=== PATIENT | male | born 1950 | race Caucasian/White ===

== ENCOUNTER 2017-01-13 10:30 | Day surgery (SDC) | payer OTHER ==
[~2017-01-13] VITALS: Ht 182.9 cm; Wt 103.4 kg
[~2017-01-13 10:30] MED LIST: ANTIVERT25 MG PO; PERCOCET 5/31 TABLET PO; TYLENOL EXTRA500 MG PO
[2017-01-13 11:06] VITALS: BP 139/95
[2017-01-13 13:25] VITALS: BP 129/84
[2017-01-13 14:11] VITALS: BP 152/74
== END 2017-01-13 14:20 | disposition home or self-care (01) ==
LOC: SDC 10:30
DX: C66.1 Malignant neoplasm of right ureter (principal); N13.30 Unspecified hydronephrosis; Z96.653 Presence of artificial knee joint, bilateral
CPT/HCPCS: 74420; 88305; C1876; J0330; J0690; J1100; J2250; J2405; J3010

== ENCOUNTER → 2017-02-08 | Outpatient (CLI) | payer MEDICARE ==
[~2017-02-08] MED LIST changes: +DOCUSATE SODIU100 MG PO; +TAMSULOSIN HCL0.4 MG PO
== END | disposition home or self-care (01) ==
LOC: CDC 09:19
DX: D49.59 Neoplasm of unspecified behavior of other genitourinary organ (principal)
CPT/HCPCS: 93000

== ENCOUNTER 2017-02-12 07:22 | Inpatient (IN) | payer OTHER ==
[~2017-02-12] VITALS: Ht 182.9 cm; Wt 102.0 kg
[~2017-02-12 07:22] MED LIST changes: -DOCUSATE SODIU100 MG PO; -TAMSULOSIN HCL0.4 MG PO
[2017-02-12 08:06] VITALS: BP 135/85
[2017-02-12] MEDS ORDERED: TAMSULOSIN HCL0.4 MG PO (14:25)
[2017-02-12] MEDS ORDERED: PERCOCET 5/31 TABLET PO (14:25)
[2017-02-12] MEDS ORDERED: DOCUSATE SODIU100 MG PO (14:25)
[2017-02-12 16:15] LABS: HEMATOCRIT 46.5 % (38.0-50.0); MCH 29.8 PG (29.0-34.0); MCHC 32.7 G/DL (30.0-36.0); MCV 91.2 FL (86-99); MEAN PLAT.VOLUME 9.5 uM^3 (9.0-12.4); PLATELET COUNT 242 K/uL (156-360); RBC DIS.WIDTH-CV 12.2 % (11.8-14.6); RBC DIS.WIDTH-SD 40.7 % (39-53)
[2017-02-12 16:22] LABS: WHITE BLOOD COUNT 13.3 K/uL (4.1-10.2)
[2017-02-12 16:39] LABS: ANION GAP 12 MEQ/L (2-14); CHLORIDE 104 MEQ/L (99-109); GFR ESTIMATE (CALCULATED) 46 mL/min/; GLUCOSE 147 mg/dL (70-99); POTASSIUM 3.7 MEQ/L (3.7-5.4); SAMPLE HEMOLYSIS CHECK 0; SAMPLE ICTERIC CHECK 0; SAMPLE LIPEMIA CHECK 0; SODIUM 139 MEQ/L (136-147); UREA NITROGEN (BUN) 12 mg/dL (9-23)
[2017-02-12 19:16] VITALS: BP 123/82
[2017-02-12 23:14] VITALS: BP 121/82
[2017-02-13 07:03] VITALS: BP 137/73
[2017-02-13 08:12] LABS: HEMATOCRIT 44.1 % (38.0-50.0); MCH 29.9 PG (29.0-34.0); MCHC 32.4 G/DL (30.0-36.0); MCV 92.1 FL (86-99); MEAN PLAT.VOLUME 9.5 uM^3 (9.0-12.4); PLATELET COUNT 249 K/uL (156-360); RBC DIS.WIDTH-CV 12.5 % (11.8-14.6); RBC DIS.WIDTH-SD 42.3 % (39-53); RED BLOOD COUNT 4.79 M/uL (4.00-5.50); WHITE BLOOD COUNT 9.9 K/uL (4.1-10.2)
[2017-02-13 08:34] LABS: ANION GAP 8 MEQ/L (2-14); CHLORIDE 102 MEQ/L (99-109); GFR ESTIMATE (CALCULATED) 46 mL/min/; SAMPLE HEMOLYSIS CHECK 0; SAMPLE ICTERIC CHECK 0; SAMPLE LIPEMIA CHECK 0; SODIUM 137 MEQ/L (136-147); UREA NITROGEN (BUN) 17 mg/dL (9-23)
[2017-02-13 08:49] LABS: GLUCOSE 98 mg/dL (70-99); POTASSIUM 4.6 MEQ/L (3.7-5.4)
[2017-02-13 11:36] VITALS: BP 142/82
[2017-02-13 15:28] VITALS: BP 154/83
[2017-02-13 18:54] VITALS: BP 124/75
[2017-02-13 23:08] VITALS: BP 162/87
[2017-02-14 04:00] VITALS: BP 132/85
[2017-02-14 06:16] LABS: HEMATOCRIT 44.1 % (38.0-50.0); MCH 29.7 PG (29.0-34.0); MCHC 32.9 G/DL (30.0-36.0); MCV 90.4 FL (86-99); MEAN PLAT.VOLUME 9.4 uM^3 (9.0-12.4); PLATELET COUNT 201 K/uL (156-360); RBC DIS.WIDTH-CV 12.2 % (11.8-14.6); RBC DIS.WIDTH-SD 40.2 % (39-53); RED BLOOD COUNT 4.88 M/uL (4.00-5.50); WHITE BLOOD COUNT 9.9 K/uL (4.1-10.2)
[2017-02-14 06:41] LABS: ANION GAP 10 MEQ/L (2-14); CHLORIDE 98 MEQ/L (99-109); GFR ESTIMATE (CALCULATED) 54 mL/min/; GLUCOSE 78 mg/dL (70-99); POTASSIUM 4.1 MEQ/L (3.7-5.4); SAMPLE HEMOLYSIS CHECK 0; SAMPLE ICTERIC CHECK 0; SAMPLE LIPEMIA CHECK 0; SODIUM 132 MEQ/L (136-147); UREA NITROGEN (BUN) 18 mg/dL (9-23)
[2017-02-14 08:39] VITALS: BP 134/87
[2017-02-14 15:45] VITALS: BP 153/95
[2017-02-14 19:24] VITALS: BP 157/88
[2017-02-14 23:23] VITALS: BP 136/86
[2017-02-15 05:34] VITALS: BP 151/90
[2017-02-15 07:10] VITALS: BP 141/81
[2017-02-15 07:12] LABS: HEMATOCRIT 42.3 % (38.0-50.0); MCHC 33.6 G/DL (30.0-36.0); MCV 89.2 FL (86-99); MEAN PLAT.VOLUME 9.7 uM^3 (9.0-12.4); PLATELET COUNT 200 K/uL (156-360); RBC DIS.WIDTH-CV 11.9 % (11.8-14.6); RBC DIS.WIDTH-SD 38.7 % (39-53); RED BLOOD COUNT 4.74 M/uL (4.00-5.50); WHITE BLOOD COUNT 9.5 K/uL (4.1-10.2)
[2017-02-15 07:35] LABS: ANION GAP 12 MEQ/L (2-14); CHLORIDE 98 MEQ/L (99-109); GFR ESTIMATE (CALCULATED) > 59 mL/min/; GLUCOSE 80 mg/dL (70-99); POTASSIUM 4.1 MEQ/L (3.7-5.4); SAMPLE HEMOLYSIS CHECK 0; SAMPLE ICTERIC CHECK 0; SAMPLE LIPEMIA CHECK 0; SODIUM 132 MEQ/L (136-147); UREA NITROGEN (BUN) 18 mg/dL (9-23)
[2017-02-15 11:00] VITALS: BP 137/83
[2017-02-15 15:00] VITALS: BP 139/79
[2017-02-15 22:40] VITALS: BP 118/78
[2017-02-16 06:55] VITALS: BP 123/81
[2017-02-16 06:58] LABS: HEMATOCRIT 41.8 % (38.0-50.0); MCH 29.6 PG (29.0-34.0); MCHC 33.5 G/DL (30.0-36.0); MCV 88.4 FL (86-99); MEAN PLAT.VOLUME 9.7 uM^3 (9.0-12.4); PLATELET COUNT 231 K/uL (156-360); RBC DIS.WIDTH-CV 11.9 % (11.8-14.6); RBC DIS.WIDTH-SD 38.7 % (39-53); RED BLOOD COUNT 4.73 M/uL (4.00-5.50); WHITE BLOOD COUNT 8.6 K/uL (4.1-10.2)
[2017-02-16 07:21] LABS: ANION GAP 13 MEQ/L (2-14); CHLORIDE 99 MEQ/L (99-109); GFR ESTIMATE (CALCULATED) > 59 mL/min/; POTASSIUM 3.8 MEQ/L (3.7-5.4); SAMPLE HEMOLYSIS CHECK 0; SAMPLE ICTERIC CHECK 0; SAMPLE LIPEMIA CHECK 0; SODIUM 135 MEQ/L (136-147); UREA NITROGEN (BUN) 17 mg/dL (9-23)
[2017-02-16 07:22] LABS: GLUCOSE 131 mg/dL (70-99)
== END 2017-02-16 13:55 | disposition home or self-care (01) | DRG 657 ==
LOC: 2SOUTH → SDC 11:14 → 2SOUTH 11:16 → EDSTATUS 15:49 → 2SOUTH 15:50 → 5EAST 17:52
PROVIDERS: Urology
DX: C66.1 Malignant neoplasm of right ureter (principal); N26.1 Atrophy of kidney (terminal); N13.30 Unspecified hydronephrosis
CPT/HCPCS: 80048; 85027; 88307; J0131; J0330; J0690; J1100; J1170; J1580; J1650; J2250; J2405; J2710; J3010; J7030; J7050; S0020